=== PATIENT | female | born 2000 | race Two or more races ===

== ENCOUNTER 2020-08-27 19:19 | Emergency (ER) | payer SELFPAY ==
[~2020-08-27] VITALS: Ht 162.6 cm; Wt 109.3 kg
[2020-08-27 19:59] LABS: MICROSCOPIC INDICATED
[2020-08-27 20:00] LABS: HCG UR SG 1.021 (1.003-1.030)
--- NOTE | 2020-08-27 20:08 | NUR ---
PT STATES ABOUT 4 HOURS AGO SHE HAD THE URGE TO HAVE TO URINATE A LOT AND VERY SCANT URINE WAS COMING OUT. BEGAN TO BECOME PAINFUL AND SOME AMOUNTS OF BLOOD BEGAN TO COME OUT.
[2020-08-27 20:47] VITALS: BP 123/57
== END 2020-08-27 20:49 | disposition home or self-care (01) ==
LOC: ED 20:30
DX: N30.01 Acute cystitis with hematuria (principal)
CPT/HCPCS: 81001; 81025; 87086; 99283